=== PATIENT | female | born 1965 | race Two or more races ===

== ENCOUNTER 2019-10-19 11:59 | Emergency (ER) | payer OTHER ==
[~2019-10-19] VITALS: Ht 162.6 cm; Wt 79.4 kg
--- NOTE | 2019-10-19 12:10 | NUR ---
epigastric pain radiating to back x 2 weeks. 02/28pain. Patient a/ox4, breathing even and unlabored, sinhala speaking, no sob noted, needs attended, changed into gown, attached to the telemetry monitor, patient able to provide a urine sample.
--- NOTE | 2019-10-19 12:15 | NUR ---
DR. GOETZ AT BEDSIDE FOR EVAL.
[2019-10-19] MEDS ORDERED: FAMOTIDINE/PF INJ 20 MG/2 ML VIAL IV ONE ×2 (12:16→12:30)
[2019-10-19] MEDS ORDERED: DICL75TA5 PO (12:32)
[2019-10-19] MEDS ORDERED: GABA-534 PO (12:32)
[2019-10-19] MEDS ORDERED: CHOL200076 PO (12:32)
[2019-10-19 12:39] LABS: BASOPHILS % (AUTO) 0.8 % (0.0-2.0); EOSINOPHILS % (AUTO) 1.9 % (0.0-6.0); HEMATOCRIT 41 % (33-45); HEMOGLOBIN 13.9 g/dL (11.5-14.8); LYMPHOCYTES # (AUTO) 1.8 /CMM (0.8-4.8); LYMPHOCYTES % (AUTO) 33.9 % (20.0-44.0); MEAN CORPUSCULAR HGB CONC 34 g/dl (31.0-36.0); MEAN CORPUSCULAR VOLUME 91 fL (82-100); MONOCYTES # (AUTO) 0.3 /CMM (0.1-1.30); MONOCYTES % (AUTO) 6.3 % (2.0-12.0); NEUTROPHILS % (AUTO) 57.1 % (43.0-81.0); PLATELET COUNT (AUTO) 233 /CMM (150-450); RED BLOOD CELL COUNT(AUTO) 4.45 MIL/uL (4.0-5.2); WHITE BLOOD COUNT (AUTO) 5.2 K/uL (4.3-11.0)
[2019-10-19 12:45] LABS: APPEARANCE,URINE Clear (CLEAR); BILIRUBIN,URINE Negative (NEGATIVE); BLOOD, URINE Negative Ery/uL (NEGATIVE); COLOR,URINE Yellow (YELLOW); KETONES,URINE Negative (NEGATIVE); LEUKOCYTE ESTERASE ,URINE Negative (NEGATIVE); NITRITE, URINE Negative (NEGATIVE); PROTEIN,URINE Negative (NEGATIVE); UGLUCOSE Negative (NEGATIVE); UROBILINOGEN,URINE 0.2 EU/dL (0.2)
[2019-10-19 12:50] LABS: CALCIUM, SERUM 9.7 mg/dL (8.5-10.1); CREATININE 0.9 mg/dL (0.6-1.3); POTASSIUM 3.5 mmol/L (3.5-5.1)
[2019-10-19 12:56] LABS: ALBUMIN 3.9 g/dL (3.4-5.0); BILIRUBIN,DIRECT 0.1 mg/dL (0.0-0.2); BILIRUBIN,TOTAL 0.7 mg/dL (0.2-1.0); TOTAL PROTEIN, SERUM 7.6 g/dL (6.4-8.2)
[2019-10-19 13:11] VITALS: BP 120/82
--- NOTE | 2019-10-19 13:11 | NUR ---
IV removed. Catheter intact and site benign. Pressure and 4x4 applied to site. No bleeding noted.Patient discharged to home in stable condition. Written and verbal after care instructions given. Patient verbalizes understanding of instruction.
== END 2019-10-19 13:11 | disposition home or self-care (01) ==
LOC: ER 12:01
DX: R10.13 Epigastric pain (principal); R10.11 Right upper quadrant pain; E11.40 Type 2 diabetes mellitus with diabetic neuropathy, unspecified; Z79.899 Other long term (current) drug therapy
CPT/HCPCS: 36415; 76700; 80048; 80076; 81001; 83690; 84703; 85025; 96374; 99284; J3490; 81000-TC

== ENCOUNTER 2023-12-30 11:36 | Emergency (ER) | payer OTHER ==
[~2023-12-30] VITALS: Ht 152.4 cm; Wt 80.3 kg
[~2023-12-30 11:36] MED LIST: CHOL200076 PO; DICL75TA5 PO; GABA-534 PO
[2023-12-30 11:40] VITALS: BP 131/84; TEMP 98.2; O2SAT 99
== END 2023-12-30 13:11 | disposition home or self-care (01) ==
LOC: ER 11:40
DX: S53.402A Unspecified sprain of left elbow, initial encounter (principal); M25.522 Pain in left elbow; E11.9 Type 2 diabetes mellitus without complications; X58.XXXA Exposure to other specified factors, initial encounter; Y93.89 Activity, other specified; Y92.89 Other specified places as the place of occurrence of the external cause; Y99.8 Other external cause status
CPT/HCPCS: 73080-TC

== ENCOUNTER 2024-03-22 21:57 | Emergency (ER) | payer OTHER ==
[~2024-03-22] VITALS: Ht 152.4 cm; Wt 78.9 kg
[2024-03-22 22:52] VITALS: BP 123/76; TEMP 98
[2024-03-22] MEDS ORDERED: CLINDAMYCIN HCL 150 MG CAPSULE ONE (23:17)
[2024-03-22] MEDS: CLINDAMYCIN HCL 150 MG CAPSULE PO ONE (23:18)
[2024-03-22 23:32] LABS: BASOPHILS % (AUTO) 0.4 % (0.0-2.0); EOSINOPHILS # (AUTO) 0.2 K/uL (0.0-0.7); EOSINOPHILS % (AUTO) 2.6 % (0.0-6.0); HEMATOCRIT 41 % (33-45); HEMOGLOBIN 13.6 g/dL (11.5-14.8); LYMPHOCYTES # (AUTO) 2.2 K/uL (0.8-4.8); LYMPHOCYTES % (AUTO) 31.7 % (20.0-44.0); MEAN CORPUSCULAR HEMOGLOBIN 30 PG (26.0-33.0); MEAN CORPUSCULAR HGB CONC 33 g/dl (31.0-36.0); MEAN CORPUSCULAR VOLUME 91 fL (82-100); MONOCYTES # (AUTO) 0.6 K/uL (0.1-1.30); MONOCYTES % (AUTO) 8.1 % (2.0-12.0); NEUTROPHILS # (AUTO) 4.1 K/uL (1.8-8.9); NEUTROPHILS % (AUTO) 57.2 % (43.0-81.0); PLATELET COUNT (AUTO) 229 K/uL (150-450); RED CELL DISTRIBUTION WIDTH 13.2 % (11.5-15.0); WHITE BLOOD COUNT (AUTO) 7.1 K/uL (4.3-11.0)
[2024-03-22 23:47] LABS: LACTIC ACID 1.6 mmol/L (0.4-2.0)
[2024-03-23 00:02] LABS: CALCIUM, SERUM 9.9 mg/dL (8.5-10.1); CREATININE 0.8 mg/dL (0.6-1.3); POTASSIUM 4.6 mmol/L (3.5-5.1)
[2024-03-23] MEDS ORDERED: CLIN150C16 PO (00:02)
[2024-03-23] MEDS ORDERED: DIPH50CA4 PO (00:02)
[2024-03-23 00:07] LABS: ALBUMIN 3.9 g/dL (3.4-5.0); BILIRUBIN,TOTAL 0.6 mg/dL (0.2-1.0); TOTAL PROTEIN, SERUM 7.3 g/dL (6.4-8.2)
[2024-03-23 00:11] VITALS: O2SAT 100
== END 2024-03-23 00:11 | disposition home or self-care (01) ==
LOC: ER 22:00
DX: S60.562A Insect bite (nonvenomous) of left hand, initial encounter (principal); L03.114 Cellulitis of left upper limb; G62.9 Polyneuropathy, unspecified; J45.909 Unspecified asthma, uncomplicated; W57.XXXA Bitten or stung by nonvenomous insect and other nonvenomous arthropods, initial encounter; Y93.89 Activity, other specified; Y92.89 Other specified places as the place of occurrence of the external cause; Y99.8 Other external cause status
CPT/HCPCS: 36415; 80053-TC; 83605-TC; 85025-TC